=== PATIENT | female | born 1995 | race Caucasian/White ===

== ENCOUNTER → 2018-11-30 | Outpatient (CLI) | payer MEDICAID ==
[~2018-11-30] MED LIST: ACE3 PO; ACE325 PO; IBU200 PO; NAP375 PO; NO CURRENT MEDS
--- NOTE | 2018-11-30 15:25 | RADIOLOGY IMAGING REPORT ---
FACILITY: [facility] PATIENT NAME: Batsheva Conner : 1995 MR: [id number] V: [id number] EXAM DATE: ORDERING PHYSICIAN: CHRIS DOLAN TECHNOLOGIST: Location: [facility] Patient: Batsheva Conner : 1995 Visit/Account:[id number] Date of Sevice: 11/30/2018 Left ankle, three views, and left foot, two views. HISTORY: Injury one year ago, persisting generalized foot and ankle pain. COMPARISON: None. Minimal cortical irregularities are present along the medial aspect of the distal fibular shaft, prob ably a normal appearance at the insertion of the interosseous membrane. Minimal spurring without keyla nt space narrowing is present along the superior aspect of the cuneiform-metatarsal joint. The bones , joints, and soft tissues are otherwise unremarkable. No widening of the ankle mortise. No acute fra ctures are identified. IMPRESSION: Negative for acute bony abnormality. Report Dictated By: Russ Sanabria MD at 11/30/2018 3:14 PM Report E-Signed By: Russ Sanabria MD at 11/30/2018 3:21 PM [id number]
--- NOTE | 2018-11-30 15:26 | RADIOLOGY IMAGING REPORT ---
FACILITY: [facility] PATIENT NAME: Batsheva Conner : 1995 MR: [id number] V: [id number] EXAM DATE: ORDERING PHYSICIAN: CHRIS DOLAN TECHNOLOGIST: Location: [facility] [place] Patient: Batsheva Conner : 1995 Visit/Account:[id number] Date of Sevice: 11/30/2018 Left ankle, three views, and left foot, two views. HISTORY: Injury one year ago, persisting generalized foot and ankle pain. COMPARISON: None. Minimal cortical irregularities are present along the medial aspect of the distal fibular shaft, prob ably a normal appearance at the insertion of the interosseous membrane. Minimal spurring without keyla nt space narrowing is present along the superior aspect of the cuneiform-metatarsal joint. The bones , joints, and soft tissues are otherwise unremarkable. No widening of the ankle mortise. No acute fra ctures are identified. IMPRESSION: Negative for acute bony abnormality. Report Dictated By: Russ Sanabria MD at 11/30/2018 3:14 PM Report E-Signed By: Russ Sanabria MD at 11/30/2018 3:21 PM WSN:[id number]
== END ==
LOC: RAD 13:43
PROVIDERS: ATTEND Physician Assistant
DX: M25.572 Pain in left ankle and joints of left foot (principal)